=== PATIENT | female | born 1935 | race Caucasian/White ===

== ENCOUNTER 2024-09-12 05:38 | Inpatient (IN) | payer MEDICARE, OTHER, SELFPAY ==
[2024-09-12] VITALS (19 sets, daily range): BP systolic 101–180; BP diastolic 58–131; BMI 22.8
[2024-09-12] MEDS: TYLENOL/FEVERALL 650 MG RECTAL ×2 (00:56→06:49)
[2024-09-12] MEDS: NSS 1000 IV ×2 (00:59→02:30)
--- NOTE | 2024-09-12 01:01 | ED.GENMED ---
History of Present Illness
General
Chief Complaint: Change in Mental Status
Source: patient and ambulance crew
Exam Limitations: altered mental status
Time Seen by Provider: 09/12/24 00:50
Nursing documentation reviewed up to this point in time: agreed with
History of Present Illness
History of Present Illness:
89-year-old female with no reported chronic medical issues presents to the ER for evaluation of change in mental status. Patient is confused and lethargic and cannot meaningfully participate in history. History obtained from EMS and son. Patient
lives at home with her who unfortunately has dementia; she has 24-hour nursing care. Son says that she has a general cognitive decline over the past year or so. Today increasingly lethargic and in the evening visiting nurse noted patient
was having shaking chills. Symptoms persisted throughout the evening which ultimately resulted in EMS transport to the emergency room. She did have some vomiting and diarrhea this evening. No cough or other symptoms noted.
Review of Systems
Review of Systems
Unable to obtain full review of systems at this time due to: other (Mental status change)
All Other Systems: Not applicable
Phy Exam
Physical Exam
Physical Exam:
General: Lethargic but arousable
Head: Normocephalic, atraumatic
Eyes: Conjunctiva normal, pupils equal round and reactive to light bilaterally
Throat: Airway intact, dry mucous membranes
Neck: Trachea midline, supple without meningismus
Lungs: Clear to auscultation bilaterally, no wheezing, rales, rhonchi
Heart: Regular rate and rhythm, no murmurs, gallops, or rubs
Abd: Soft, non distended, no apparent tenderness
Neuro: Cranial nerves grossly intact, motor and sensory intact in extremities
Skin: Warm and dry
Extremities: Warm and well-perfused
Scores
Heart Failure Risk
Heart Failure Risk Score: Not Applicable
Heart Score for Chest Pain Patients
STEMI patient?: Not applicable
Withdrawal Assessment of Alcohol
Withdrawal Assessment Completed?: Not applicable
Sepsis
Sepsis Screening
Sepsis Assessment: Sepsis
Sepsis Screen
Sepsis Screen: Sepsis
Date: 09/12/24
Time: 03:45
Course
Orders/Labs/Results
Orders:
Orders
09/12/24 00:51
Straight cath- Treatment ONCE
Acetaminophen [Tylenol/Feverall] 650 mg RECTAL NOW STA
CR Chest Portable - 1 View Urgent
Comment:
Reason For Exam: fever
Reason Study Needs to be Portable: Unable to Transport
09/12/24 00:52
0.9% Sodium Chloride 1000 ml [Nss] 1,000 ml IV BOLUS
09/12/24 01:03
Piperacillin/Tazo 3.375 Gram [Zosyn] 3.375 gram in 50 ml IV NOW
09/12/24 01:06
Basic Metabolic Panel Urgent
Comment: NO K
Complete Blood Count/With Diff Urgent
Lipase Urgent
Blood Culture Q30M
RICHIE Source: Blood/Venous
Specimen Description:
Blood Culture Q30M
RICHIE Source: Blood/Venous
Specimen Description:
Influenza A+B Rapid Molecular Urgent
RICHIE Source: Nasal Swab
Specimen Description:
09/12/24 01:07
COVID-19 Antigen Urgent
Source: Nasal Swab
Lactate Level [Lactic Acid] Urgent
09/12/24 01:13
Norovirus by PCR Urgent
RICHIE Source: Feces/Stool
Specimen Description:
Date Specimen was Collected: 09/12/24
Time Specimen was Collected: 01:12
Stool Culture Urgent
RICHIE Source: Feces/Stool
Specimen Description:
Date Specimen was Collected: 09/12/24
Time Specimen was Collected: 01:12
09/12/24 01:37
CT Abd/pelvis W Iv Cont Urgent
Comment:
Reason For Exam: N/V/D, sepsis
09/12/24 01:40
0.9% Sodium Chloride 1000 ml [Nss] 1,000 ml IV BOLUS
09/12/24 02:24
CT Head W/o Iv Contrast Urgent
Comment:
Reason For Exam: n/v, change in mentation
Ibuprofen [Motrin] 400 mg PO NOW STA
09/12/24 02:29
Electrocardiogram (*1) Urgent
Reason for Study: QTc Monitoring
EKG- Treatment ONCE
Haloperidol Lactate [Haldol] 1 mg IV NOW STA
09/12/24 02:34
Acetaminophen [Tylenol/Feverall] 325 mg RECTAL NOW STA
09/12/24 02:36
Urinalysis Reflex To Culture Urgent
Date Specimen was Collected: 09/12/24
Time Specimen was Collected: 02:35
Urine Microscopic Reflex Cult Urgent
09/12/24 02:41
Vancomycin [Vancocin] 1,500 mg 0.9% Sodium Chloride 500 ml [Nss] 500 ml IV NOW
09/12/24 03:00
LFT [Vvkoc-Nhly-Uzcpwvt] Urgent
Potassium Urgent
09/12/24 03:02
Lactic Acid Urgent
09/12/24 03:03
Add On- LAB Urgent
Tests Added?: potassium
09/12/24 03:05
Haloperidol Lactate [Haldol] 1 mg IV NOW STA
Abnormal Lab Results
09/12/24 09/12/24 09/12/24
01:06 01:07 02:36
WBC 16.3 H 10^3/uL
(4.8-10.8)
RBC 4.01 L 10^6/uL
(4.20-5.40)
Hct 34.3 L %
(37.0-47.0)
MCH 31.7 H pg
(27.0-31.0)
Abs Immat Gran (auto) 0.2 H 10^3/uL
(0-0.05)
Absolute Neuts (auto) 13.4 H 10^3/uL
(1.4-6.5)
Absolute Monos (auto) 0.9 H 10^3/uL
(0.1-0.6)
Immature Gran % 1.1 H %
(0-0.5)
Neutrophils % 81.7 H %
(42.2-75.2)
Lymphocytes % 11.0 L %
(20.5-51.1)
Carbon Dioxide 17 L mmol/L
(22-30)
BUN 18 H mg/dl
(7-17)
Glucose 228 H mg/dl
(70-99)
Lactic Acid 5.6 H* mmol/L
(0.7-2.0)
Total Protein
Urine Ketones 2+ A
(Negative)
Ur Occult Blood Reflex 3+ A
(Negative)
Urine Bacteria (Reflex) Few A
(Negative)
Urine Glucose 3+ A
(Negative)
Urine Albumin (Reflex) 2+ A
(Neg - Trace)
09/12/24 09/12/24
03:00 03:02
WBC
RBC
Hct
MCH
Abs Immat Gran (auto)
Absolute Neuts (auto)
Absolute Monos (auto)
Immature Gran %
Neutrophils %
Lymphocytes %
Carbon Dioxide
BUN
Glucose
Lactic Acid 3.8 H mmol/L
(0.7-2.0)
Total Protein 5.9 L g/dl
(6.3-8.2)
Urine Ketones
Ur Occult Blood Reflex
Urine Bacteria (Reflex)
Urine Glucose
Urine Albumin (Reflex)
09/12/24 01:06
09/12/24 03:00
Vital Signs
Initial and Last Documented VS:
Initial Vital Signs
BP
101/78
09/12/24 00:45
Last Documented Vital Signs
Temp Pulse Resp BP Pulse Ox
39.4 C H 88 31 180/131 98
09/12/24 02:32 09/12/24 03:30 09/12/24 03:30 09/12/24 03:00 09/12/24 03:30
MDM/Problems Addressed
Differential Diagnosis Includes:
UTI, pneumonia, viral syndrome
MDM/Problems Addressed:
89-year-old female presents with a change in mental status�increasingly lethargic today. She arrives to us febrile, soft blood pressure, mild tachypnea but no hypoxia. Heart rate in the 80s. Physical exam as above. Will place an IV send labs
including a CBC and a CMP, lactate, blood cultures. Swab for COVID and flu. Check chest x-ray. Check urinalysis. Check CT abdomen, CT head. Treat with fluids, Tylenol. Anticipate admission pending initial workup and resuscitation.
Initial labs reviewed: CBC shows leukocytosis to 16.3. CMP shows metabolic acidosis with bicarb of 17; lactate 5.6 likely source of acidosis. With lactate greater than 4 will complete 30 cc/kg sepsis fluid bolus. Empiric antibiotics with
vancomycin and Zosyn. Chest x-ray reviewed by me shows no pneumonia. Urinalysis pending. CT pending.
Patient becoming agitated and trying to get out of bed. Haldol for agitation. EKG for QTc monitoring.
CT abdomen pelvis no acute pathology to account for symptoms. Urinalysis positive for blood in the setting of catheterization. No significant amount of bacteria or pyuria to suggest an acute infection. Chest x-ray shows no acute disease. At this
point unclear source for sepsis�could be viral illness versus bacteremia versus colitis/enteritis. Covered empirically with broad-spectrum antibiotics. Lactate improving with fluids. Discussed case with hospitalist for admission.
*Radiology
Radiology exam reviewed: preliminary read by ED provider
*Pulse Oximetry
Patient hypoxic: no
*Critical Care Note
Total Time (30-74mins, 75-104mins- exclusive of procedures): Not Applicable
Data Reviewed
Source: family and ambulance crew
Patient Management
Discussion with other providers: Hospitalist (Discussed with hospitalist)
Escalation/DeEscalation of care consider admission/obs:
Admission indicated
ED Attending Note
-
Portions of this chart may have been created with voice recognition software.� Occasional wrong word or��sound alike� substitutions may have occurred due to the inherent limitations of voice recognition software.
Discharge Plan
Departure
Patient Disposition: Admit
Date of Disposition: 09/12/24
Time of Disposition: 03:46
Admit to doctor: Gwen
Presentation/result/management discussed w/ accepting MD/DO: Hospitalist
Patient with high blood pressure during this ER visit?: No
Discharge Problem:
Sepsis, Diarrhea, Fever
Prescriptions:
No Action
Unobtainable
0
Referrals:
UNKNOWN - PT DOES,NOT KNOW [Family Provider] -
Interventions
Interventions:
*Risk Screen - Suicide Last Done: 09/12/24 01:32
*General Assessment Last Done: 09/12/24 01:36
*Neglect/Abuse Screening Last Done: 09/12/24 01:32
*ED- Fall Risk Assessment Last Done: 09/12/24 01:32
*ED COVID-19 Vaccine History Last Done: 09/12/24 01:32
ED- Neurological Assessment Last Done: 09/12/24 01:00
ED Swallowing Screen Last Done: 09/12/24 01:33
Discharge Date and Time
Print Language: [place]
[2024-09-12 01:17] LABS: % Basophils 0.4 % (0-2); % Eosinophils 0.1 % (0-6); % Immature Granulocytes 1.1 % (0-0.5); % Monocytes 5.7 % (1.7-9.3); % Neutrophils 81.7 % (42.2-75.2); Absolute Basophils 0.1 10^3/uL (0-0.2); Absolute Immature Granulocytes 0.2 10^3/uL (0-0.05); Absolute Lymphocytes 1.8 10^3/uL (1.2-3.4); Absolute Monocytes 0.9 10^3/uL (0.1-0.6); Absolute Neutrophils 13.4 10^3/uL (1.4-6.5); Hematocrit 34.3 % (37.0-47.0); Hemoglobin 12.7 g/dL (12.0-16.0); Mean Corpuscular Hgb 31.7 pg (27.0-31.0); Mean Corpuscular Volume 85.5 fL (81.0-99.0); Mean Platelet Volume 9.6 fL (7.4-10.4); Nucleated Red Blood Cells % 0 %; Platelet Count 307 10^3/uL (130-400); Red Blood Cell Count 4.01 10^6/uL (4.20-5.40); Red Cell Dist. Width 13.5 % (11.5-14.5); White Blood Cell Count 16.3 10^3/uL (4.8-10.8)
[2024-09-12] MEDS: ZOSYN 50 IV (01:25)
[2024-09-12 01:37] LABS: COVID-19 Antigen Negative (Negative)
[2024-09-12 01:38] LABS: Blood Urea Nitrogen 18 mg/dl (7-17); Carbon Dioxide 17 mmol/L (22-30); Chloride 101 mmol/L (98-107); Estimated Creatinine Clearance 43 ml/min; Glucose 228 mg/dl (70-99); Lipase 130 U/L (23-300); Sodium 135 mmol/L (135-145); eGFR > 60.00
[2024-09-12 01:40] LABS: Lactic Acid 5.6 mmol/L (0.7-2.0)
[2024-09-12] MEDS: TYLENOL/FEVERALL 325 MG RECTAL (02:41)
[2024-09-12 02:43] LABS: Urine Albumin 2+ (Neg - Trace); Urine Bilirubin Negative (Negative); Urine Character Clear (Clear); Urine Color Yellow; Urine Glucose 3+ (Negative); Urine Ketone 2+ (Negative); Urine Leukocyte Negative (Negative); Urine Nitrite Negative (Negative); Urine Occult Blood 3+ (Negative); Urine Specific Gravity 1.005 (<1.030); Urine Urobilinogen Negative (Neg - 1+)
[2024-09-12] MEDS: HALDOL 1 MG IV ×2 (02:55→03:08)
[2024-09-12 02:56] LABS: Urine Red Blood Cell 0-2 /HPF (0-2); Urine White Cell 0-2 /HPF (0-5)
[2024-09-12 02:57] LABS: Urine Bacteria Few (Negative)
--- NOTE | 2024-09-12 03:00 | EDRN ---
Report received at bedside, this RN and previous changed patient she had a small liquid stool, patient cleaned and then taken over to CT, back in room and antibiotics started on patient. Patient very restless, trying to take off gown and telemetry
monitor.
[2024-09-12] MEDS: VANCOCIN 530 MG IV (03:27)
[2024-09-12 03:30] LABS: Lactic Acid 3.8 mmol/L (0.7-2.0)
[2024-09-12 03:30] LABS: ALT (SGPT) 17 U/L (0-35); AST (SGOT) 22 U/L (14-36); Albumin 3.8 g/dl (3.5-5.0); Alkaline Phosphatase 70 U/L (38-126); Direct Bilirubin 0.2 mg/dl (0.0-0.4); Potassium 4.4 mmol/L (3.5-5.1); Total Bilirubin 1.2 mg/dl (0.2-1.3); Total Protein 5.9 g/dl (6.3-8.2)
--- NOTE | 2024-09-12 04:00 | EDRN ---
Rechecked patients temp, temp now 102.8, there hasn't been much of a decrease in her temp. placed ice packs in armpits and groin, spoke with Dr. Butterfield who is managing patient until she is admitted, IV ibuprofen ordered.
--- NOTE | 2024-09-12 04:11 | HPS.HSE ---
Family Physician
-
Family Physician: NOT KNOW UNKNOWN - PT DOES
Chief Complaint
-
Altered mental status
History of Present Illness
89-year-old female with past medical history (obtained from medical records) including hyperlipidemia, iwa-fwusxtk-abyirgfos diabetes, history of prior low pancreatic mass, prior uterine cancer status post hysterectomy who presents from home with
altered mental status and fever.
Patient unable to provide any history as she is quite encephalopathic. She lives with her spouse will have severe dementia. She has a 24-hour home paid and caregiver. ED obtained history from EMS and son. They reported that she has been having
cognitive decline over the past year. She was increasing lethargic from this a.m. The evening nurse noted that the patient was having shaking chills. Throughout our stay with the patient the shaking chills persisted so EMS was called. Apparently
had episode of vomiting and diarrhea earlier in the evening. No oral focal findings were described.
As read renal patient has no recent sick contacts. She has no recent travels. She has no recent hospitalizations., We are not certain of any active medications. No known history of seizures.
1 small amount of diarrhea in the ED.
In the emergency department she was persistently febrile 12/102.9. Blood pressure was elevated at 180/70 with a pulse of 80s. Respiratory rate was in the 30s. She was satting 98% on room air. ECG shows a sinus rhythm at a rate of 90. Chest
x-ray was clear. Lactic acid was elevated at 5.6. She has a white count of 16.3 with a CBC otherwise been unremarkable. Electrolytes BUN and creatinine notable for a bicarb of 17 BUN and creatinine was stable at 8 and 0.8. Glucose was 225.
Additional infectious workup including COVID-19, influenza negative. UA was completely negative. She had a CT of the abdomen pelvis which showed no acute intra-abdominal pathology.
Medical History
Past Medical History
Past Medical History: Reports Cancer (History of uterine cancer, history of pancreatic mass), Hypercholesterolemia and NIDDM
Past Surgical History: Reports Gynocological (Total hysterectomy and bilateral salpingo-oophorectomy) and Other (Hernia repair)
Social History
Tobacco: Non-smoker
Alcohol: None
Drug: None
Family History
Family History: Not pertinent
Allergies / Home Medications
Allergies reflects when Allergies were last updated in [facility].
Home Medications with original date entered in [facility]
Allergy/Medication List:
Allergies
Allergy/AdvReac Type Severity Reaction Status Date / Time
NKA - No Known Allergies Allergy Uncoded 09/08/07 10:25
Home Medications
Unobtainable 09/12/24
Prior to 09/12/2024
Sertraline HCl 50 MG 1 tablet Orally Once a day for 30 days Active
metFORMIN HCl 1000 MG 1 tablet with a meal Orally twice a day for 30 days Jan, Active
Review of Systems
-
Unable to obtain full review of systems at this time due to: Acuity
Physical Exam
Vital Signs
Vital Signs
Temp Pulse Resp BP Pulse Ox
102.9 F H 91 29 174/82 97
09/12/24 02:32 09/12/24 04:06 09/12/24 03:59 09/12/24 04:06 09/12/24 03:59
Physical Exam
General: Appears in Distress
HEENT: NormoCephalic, Atraumatic, Nose Appears Normal, Ears Appear Normal and Neck Nontender (Cannot assess for tenderness, does not appear stiff); No Moist mucous membranes, PERRLA (Cannot cooperate) or Oxygen
Respiratory: Clear
Cardiac: S1/S2 and Regular Rhythm
Breast: Deferred by me
GI: Soft and Non Distended
Rectal: Brown
Genito-urinary: Clear Urine
Musculoskeletal: No Clubbing, No Cyanosis and No Edema
Skin: Warm and Dry
Neuro: DTR's Intact & Symmetrical and Other (agitated, awake, cannot follow commads.)
Hematologic/Lymphatic: No Lymphadenopathy
Psych: Agitated
Laboratory Results
-
09/12/24 01:06
09/12/24 03:00
Laboratory Results
Lactic Acid 3.8 mmol/L (0.7-2.0) H 09/12/24 03:02
Total Bilirubin 1.2 mg/dl (0.2-1.3) 09/12/24 03:00
AST 22 U/L (14-36) 09/12/24 03:00
ALT 17 U/L (0-35) 09/12/24 03:00
Alkaline Phosphatase 70 U/L (38-126) 09/12/24 03:00
Lipase 130 U/L (23-300) 09/12/24 01:06
Data Reviewed
-
Diagnostic Radiology: Image Personally Visualized and interpreted
CT Scan: Report Reviewed by me
Medical Tests (Nuc Med, Echo, EKG etc): Image Personally Visualized and interpreted
Lab Data: Labs Reviewed by me
Old Records: Reviewed
Impression/Plan
-
IMPRESSION:
89 F transferred from home after 24 hour care givers noted shaking chills, altered mental status. Febrile to 102.9 in ED. History notable for 1 year of progressive dementia, vomiting/diarrhea in am then shaking chills and altered mental status
this evening. No other history available. Exam is unrevealing for localization of source of infection. Imaging studies unremarkable. LFTs normal. U/A normal. She has leukocytosis, and marked elevation in lactic acid. Influenza is negative.
Covid is negative. Sepsis without shock. Given patient is home bound differential here includes meningitis/encephalitis versus transient bacteremia.
PLAN:
1. Sepsis - Source unclear. AMS possibly from febrile illness but in the absence of source cannot rule out meningitis
- admit to IMU
- blood cultures sent
- urine cx sent
- stool studies pending
- No trauma, empiric coverage for bacterial meningitis IV vanc/ceftriaxone/ampicillin/dexamethasone + acyclovir
- Continue IV fluids
- HOB > 30
- possible LP in am
- ID consultation
2. Lactic acidosis - from sepsis
- continue IV fluids with LR for now
- vbg in am
3. DM II
- sliding scale insulin for now
- check bHB and a1c
DVT PPX - heparin sq
Code status - unable to obtain. Called family and had no response. Full Code for now.
--- NOTE | 2024-09-12 04:30 | EDRN ---
Patient continuously pulling monitor off and pulling at IV lines, Hospitalist at bedside working on admission, verbal order to start soft limb restraints on both wrists for patients safety.
[2024-09-12] MEDS: CALDOLOR 156 MG IV (04:35)
[2024-09-12] MEDS: ZOVIRAX INJECTION 112 MG IV (05:38)
--- NOTE | 2024-09-12 06:17 | EDRN ---
Report called to IU, patient changed, incontinent to urine and small amount of stool, rechecked temp 102.6
--- NOTE | 2024-09-12 06:30 | EDRN ---
While leaving for IMU, spoke with ALLI Lamar informed her that patient's temp still elevated at 102.6, she was putting order in for cooling blanket, informed IMU nurse when I took patient upstairs.
--- NOTE | 2024-09-12 06:44 | PTCARENOTE ---
PT admitted to unit. NOnverbal, not oriented. Opens eyes to verbal and look at you when you speak. NSR on monitor. RA. hypertensive. febrile. pt pulling at iv's/gown but cooperative. Sleeping now. Will monitor.
[2024-09-12] MEDS: LR 1000 IV ×2 (06:48→15:56)
--- NOTE | 2024-09-12 08:08 | PTCARENOTE ---
Assumed careof patient this AM. Patient arrived from ED at 06:30AM. Patient opens eyes but is currently nonverbal. HOB set at 30 degrees. Cooling blanket in place as ordered. Rectal temperature 102.2. Bilateral wrist restraints as ordered for
protection. Will access the need for restraints through
out the day. Will continue to monitor frequently.
[2024-09-12 08:27] LABS: Glucose - Point of Care 259 mg/dl (70-99)
[2024-09-12] MEDS: ROCEPHIN 2000 MG IV (08:39)
[2024-09-12] MEDS: DECADRON 10 MG IV (08:39)
[2024-09-12] MEDS: STERILE WATER FOR INJECTION 20 ML IV (08:39)
[2024-09-12] MEDS: AMPICILLIN 108 MG IV (08:40)
[2024-09-12] MEDS: PROTONIX IV 40 MG IV (08:40)
[2024-09-12] MEDS: NSS (PRESERVATIVE FREE) 10 ML IV (08:40)
[2024-09-12] MEDS: HEPARIN 5000 UNITS SC ×2 (08:40→19:28)
[2024-09-12] MEDS: NOVOLOG FLEXPEN-LOW RESISTANCE 3 UNITS SC (09:03)
--- NOTE | 2024-09-12 09:05 | CON.ID ---
Consultation
-
Date/Time Consultation Requested: September 12, 2024 0637
Date/Time Consultation Performed: September 12, 2024 0900
Requesting Provider: Dr. Marcus Jack
Performing Provider: Dr. Cinthya Copeland
Reason for Consultation: Sepsis
Chief Complaint / Past History
Chief Complaint
Change in mental status and fever
History of Present Illness
History obtained from review medical records as patient has cognitive impairment. She is a 89-year-old female with history of diabetes mellitus, PAD, depression who presented to the ER at midnight with encephalopathy. Patient receives 24-hour care
at home along with her who has dementia. Caregiver noted patient started with shaking chills throughout the day. Also patient more confused and lethargic. Earlier in the evening she had episode of emesis and diarrhea. In the ED
temperature one 101.4. White count 16.3. Lactic acid 5.6. Blood pressure elevated up to 180/131. COVID-negative. Influenza negative. UA negative. Chest x-ray negative. CT of the abdomen pelvis unremarkable. Head CT no acute pathology. She
was started on IV ceftriaxone, ampicillin, vancomycin, and dexamethasone for possible meningitis. Stool was sent for culture and norovirus. This morning patient is arousable. She denies headache or neck stiffness. She denies pain. No cough.
Past History
Additional Past Medical History:
Diabetes mellitus
Progressive cognitive impairment
HLD
PAD
Benign pancreatic cyst
Uterine cancer status post hysterectomy/BSO (2000)
Depression
Hearing loss
Umbilical Hernia repair
L TKR
Cataract surgery
Allergy History:
NKA - No Known Allergies Allergy (Uncoded 09/08/07 10:25)
Medications Reviewed: Yes
Current Antibiotics:
Ceftriaxone 2g IV q12
VancomycinIV
Ampicillin 2g IV q6h
Acyclovir IV 600mg q12h
Dexamethasone
Social History
Tobacco: Non-Smoker
Alcohol: None
Drug: None
Personal:
Living: Other ( and 24h paid caregiver)
Family History
Family History: Not Pertinent
Review of Systems
Review of Systems
HEENT: Negative Sinus Problems or Headache
Respiratory: Negative Dyspnea or Cough
Limited due to change in mental status.
Vital Signs
Temp Pulse Resp BP Pulse Ox
102.2 F H 97 26 152/75 93
09/12/24 08:07 09/12/24 06:15 09/12/24 06:15 09/12/24 06:00 09/12/24 06:00
Physical Exam
Physical Exam
Constitutional: Acutely Ill and Chronically Ill
Head: Other (No frontal or max or sinus tenderness)
Eyes: No Conjunctival Hemorrhage and Sclera Anicteric
Oral: Poor Dentition (decayed from age)
Cardiovascular: Regular Rate and S1/S2
Pulmonary: Other (Poor respiratory effort)
Gastrointestinal: Soft, Non Tender, Non Distended and Normal Bowel Sounds
Genito-Urinary: Negative Suprapubic Tenderness or CVA Tenderness
Extremities: Negative Edema
Musculoskeletal: Negative Joint Swelling or Joint Effusion
Neurological: Other (Lethargic but arousable, follows commands.); Negative Oriented or Meningeal Signs (Neck supple)
Lab / Diagnostic Study Results
09/12/24 01:06
09/12/24 03:00
Abs Immat Gran (auto) 0.2 10^3/uL (0-0.05) H 09/12/24 01:06
Absolute Neuts (auto) 13.4 10^3/uL (1.4-6.5) H 09/12/24 01:06
Absolute Lymphs (auto) 1.8 10^3/uL (1.2-3.4) 09/12/24 01:06
Absolute Monos (auto) 0.9 10^3/uL (0.1-0.6) H 09/12/24 01:06
Absolute Basos (auto) 0.1 10^3/uL (0-0.2) 09/12/24 01:06
Immature Gran % 1.1 % (0-0.5) H 09/12/24 01:06
Neutrophils % 81.7 % (42.2-75.2) H 09/12/24 01:06
Lymphocytes % 11.0 % (20.5-51.1) L 09/12/24 01:06
Monocytes % 5.7 % (1.7-9.3) 09/12/24 01:06
Eosinophils % 0.1 % (0-6) 09/12/24 01:06
Basophils % 0.4 % (0-2) 09/12/24 01:06
Lactic Acid 3.8 mmol/L (0.7-2.0) H 09/12/24 03:02
Ur Squamous Epith Cells 3-5 /LPF (Few) 09/12/24 02:36
Microbiology Results
Micro:
09/12/24 08:44 Blood Culture - Pending
Blood/Venous
09/12/24 01:06 Influenza Types A & B (HAMZAH) - Final
Nasal Swab Negative for Influenza A & B, NAAT
Negative results must be combined with clinical observations
and patient history.
Nucleic Acid Amplification test (NAAT)performed on the
[employer] platform.
09/12/24 01:06 Blood Culture - Pending
Blood/Venous
09/12/24 01:13 Salmonella/Shigella Culture - Pending
Feces/Stool Campylobacter Culture - Pending
Shiga Toxin Test - Pending
09/12/24 01:13 - Pending
Feces/Stool
09/12/24 01:06 Blood Culture - Pending
Blood/Venous
09/12/24 CXR: No radiographic evidence for pneumonia. 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
09/12/24 CT a/p: No CT evidence for an acute process in the abdomen or pelvis.
09/12/[address]: No acute intracranial abnormality.
Assessment / Plan
# Severe sepsis: fever, leukocytosis, tachy, elevated mental status
# Acute on chronic change in mental status
# Diarrhea
- Source of sepsis possibly GI enteritis vs lungs
- CT a/p unremarkable
-UA neg. COVID/Flu neg
- Initial cxr neg
- Await blood cultures
-Repeat CXR to assess for blossoming PNA
- Add C. diff to stool cx,norovirus
- Urine legionella/pneumococcal Ag pending
- Low suspicion for meningitis. DC VAnco/ampicillin/acyclovir.
-Decrease ceftriaxone dose to q24.
- Trend temps, wbc, lactic acid.
# Conditions LACTATION NURSE
Diabetes mellitus
Progressive cognitive impairment
HLD
PAD
Benign pancreatic cyst
Uterine cancer status post hysterectomy/BSO (2000)
Depression
Hearing loss
Umbilical Hernia repair
L TKR
Cataract surgery
Care Review
Plan reviewed with: Nurse and Physician (Dr. Jack)
[2024-09-12 09:20] LABS: Lactic Acid 3.3 mmol/L (0.7-2.0)
[2024-09-12 12:31] LABS: Glucose - Point of Care 174 mg/dl (70-99)
[2024-09-12] MEDS: NOVOLOG FLEXPEN-LOW RESISTANCE 1 UNITS SC (12:53)
--- NOTE | 2024-09-12 13:03 | W.PN.HOSP.TC ---
Today's Communication/Plan
-
Repeat chest x-ray
Follow-up stool studies and C. difficile
Follow-up with blood in urine culture
Continue IV ceftriaxone 1 g every 24
BUSINESS INFO CONSULTANT/PT/OT
NPO/IVF
Trend lactate
Assessment / Plan
Assessment / Plan
#Severe sepsis
#Acute metabolic encephalopathy
#Lactic acidosis
#Diarrhea
-Unclear source for sepsis though suspicion for GI versus pulmonary/aspiration; cultures and stool studies obtained in ED
-Initial concern for meningitis though no meningeal signs; vancomycin, ampicillin, acyclovir discontinued
-CT A/P was unremarkable, initial chest x-ray unremarkable, Legionella and pneumococcal antigen
-ID following, recommended repeat chest x-ray, C. difficile testing, reduced ceftriaxone every 24 hours
-Has remained hemodynamically stable with no vasopressors required
-Continue IV ceftriaxone, follow-up stool/blood/urine cultures and C. difficile test
-Trend CBC and temperature curve, trend lactate to normal level
-Follow-up Legionella and pneumococcal antigen
-Repeat chest x-ray to assess for change
-Continue maintenance IV
#NIDDM
-No recent A1c; no history of microvascular disease complication
-Unclear if she is on any home medications; started on ISS with Accu-Cheks
-Blood glucose goal 140-180
#Dyslipidemia
-Not currently on any medications, no known ASCVD history
#H/O uterine cancer s/p FARRUKH
#H/O pancreatic mass
DVT prophylaxis: SQ heparin
Diet: N.p.o. pending speech eval
CODE STATUS: Full code
Anticipated Discharge: > 48 hours
Subjective/Interval History
-
Date of Service: September 12, 2024
Seen and examined at bedside. No acute events reported overnight. Temperature 102 �F this morning, otherwise hemodynamically stable and on room air
Lactic acid improving with IV fluids, down to 3.3 on last check.
ROS limited by encephalopathy
Objective Data
-
Labs:
Laboratory Results
09/12/24 09/12/24
01:06 03:00
WBC 16.3 H
Hgb 12.7
Hct 34.3 L
Plt Count 307
Sodium 135
Potassium 4.4
Chloride 101
Carbon Dioxide 17 L
BUN 18 H
Creatinine 0.8
Glucose 228 H
Calcium 10.0
Total Bilirubin Cancelled 1.2
AST Cancelled 22
ALT Cancelled 17
Alkaline Phosphatase Cancelled 70
Vital Signs:
Vital Signs
Temp Pulse Resp BP Pulse Ox
100.3 F 79 15 148/77 95
09/12/24 11:38 09/12/24 10:15 09/12/24 10:15 09/12/24 10:00 09/12/24 10:15
I&O
09/11/24 09/12/24 09/13/24
06:59 06:59 06:59
Intake Total 108 / 108
Balance 108 / 108
Review of Systems
-
Unable to obtain full review of systems at this time due to: Acuity
Physical Exam
-
General: Well Developed, Well Nourished, No Apparent Distress and Other (Toxic appearing)
HEENT: Normocephalic, Atraumatic, Moist Mucous Membranes and Anicteric
Respiratory: Clear to Auscultation and Non Labored Respirations; Negative Accessory Resp Muscle Use
Cardiac: Regular Rhythm and S1/S2; Negative Murmur, Rub or Gallop
GI: Soft, Nontender, Nondistended and Normal Bowel Sounds
Musculoskeletal: No Clubbing, No Cyanosis and No Edema
Skin: Warm and Dry; Negative Rash
Neuro: Awake, Alert, Nonfocal/Grossly Intact and Other (No meningeal signs); Negative Oriented or Tremors
Psych: Calm
Data Reviewed
-
Labs: Labs Reviewed by me, Discussed with Physician (Infectious disease) and Discussed with Patient
--- NOTE | 2024-09-12 15:34 | CM ---
Patient seen at bedside in IMU. Patient lives with her who has severe dementia and they have 24/7 caregivers. Patient son indicated that the home is a 2 story home and they remain on the first floor. Patient has a walker and no VN supports
at this time. Patient PCP is Dr. Paez at [facility], they use [facility] in [place] and patient has been incontinent for the last 6 months. Patient son stated that patient has depression and diabetes. Patient son indicated that
patient does not want to go anywhere other than home at discharge but they would consider accepting VN supports. CM will continue to follow for discharge planning needs.
Plan; home with private duty aides; watch for home VN need
--- NOTE | 2024-09-12 16:00 | PTCARENOTE ---
Patient has been off the cooling blanket since 11:30am. Patient is more alert and awake at times but still unable to follow commands. Verbalizing yes and no to some questions. Continued need for bilateral wrist restraints. Patient INC of bowel
and bladder. Order to for IV site and lab draws in feet. IV fluids infusing as ordered via right foot site. Patient reminds NPO until more alert to work with speech. Family in room and updated.
[2024-09-12 16:10] LABS: Lactic Acid 2.1 mmol/L (0.7-2.0)
--- NOTE | 2024-09-12 16:24 | PTOTSP ---
Dysphagia Eval
Patient with severe oral stage difficulty (i.e., biting utensil, absent anterior to posterior oral transfers) likely related to AMS/acute encephalopathy. Reflexive swallow noting noted with oral care. Aspiration risk is acutely elevated.
Recommend:
1. NPO with consideration of temporary non-oral means if prolonged NPO
2. Medications non-oral
3. Oral care 3-5x daily
4. Aspiration risk hydration protocol is not appropriate at this time
5. Dysphagia f/u bedside to determine if/when appropriate to initiate an oral diet
[2024-09-12 18:05] LABS: Glucose - Point of Care 225 mg/dl (70-99)
[2024-09-12] MEDS: NOVOLOG FLEXPEN-LOW RESISTANCE 2 UNITS SC (18:05)
[2024-09-12] MEDS: STERILE WATER FOR INJECTION IV (18:09)
--- NOTE | 2024-09-12 22:51 | PTCARENOTE ---
Caring for pt overnight. Family at bedside. Code status changed to DNR per pt paperwork. Pt drowsy but restless. Unable to remove restraints. NSR/SB on monitor. Remains RA. Q2T. IVF. npo. ivabx. Refused mouth care. CHG wipes. Cooling blanket PRN,
will monitor temps. No other issues. BA on. Will monitor.
[2024-09-12 23:42] LABS: Glucose - Point of Care 201 mg/dl (70-99)
[2024-09-13] VITALS (15 sets, daily range): BP systolic 118–163; BP diastolic 58–138; PULSE 59; O2SAT 97
[2024-09-13] MEDS: NOVOLOG FLEXPEN-LOW RESISTANCE 2 UNITS SC ×2 (00:28→17:24)
[2024-09-13] MEDS: LR 1000 IV (01:02)
[2024-09-13] MEDS: ROCEPHIN 2000 MG IV (05:09)
[2024-09-13] MEDS: STERILE WATER FOR INJECTION 20 ML IV (05:10)
[2024-09-13] MEDS: FLUSH (NSS) 1 FLUSH IV ×3 (05:11→08:47)
[2024-09-13] MEDS: NOVOLOG FLEXPEN-LOW RESISTANCE SC (05:31)
[2024-09-13 05:42] LABS: Glucose - Point of Care 118 mg/dl (70-99)
[2024-09-13 06:21] LABS: Venous Blood Gas B.E. -1.8 mmol/L (-4 to +4); Venous Blood Gas HCO3 21.5 mmol/L (22-27); Venous Blood Gas O2 Sat % 99.9 %; Venous Blood Gas pCO2 31 mmHg (35-48); Venous Blood Gas pH 7.45 (7.32-7.43); Venous Blood Gas pO2 193 mmHg (30-50)
[2024-09-13 06:31] LABS: % Basophils 0.4 % (0-2); % Eosinophils 1.5 % (0-6); % Immature Granulocytes 0.6 % (0-0.5); % Lymphocytes 20.7 % (20.5-51.1); % Monocytes 8.1 % (1.7-9.3); % Neutrophils 68.7 % (42.2-75.2); Absolute Eosinophils 0.2 10^3/uL (0-0.7); Absolute Immature Granulocytes 0.1 10^3/uL (0-0.05); Absolute Lymphocytes 2.3 10^3/uL (1.2-3.4); Absolute Monocytes 0.9 10^3/uL (0.1-0.6); Absolute Neutrophils 7.5 10^3/uL (1.4-6.5); Hematocrit 27.7 % (37.0-47.0); Hemoglobin 10.1 g/dL (12.0-16.0); Mean Corp Hgb Conc. 36.5 g/dL (33.0-37.0); Mean Corpuscular Hgb 31.8 pg (27.0-31.0); Mean Corpuscular Volume 87.1 fL (81.0-99.0); Mean Platelet Volume 9.9 fL (7.4-10.4); Nucleated Red Blood Cells % 0 %; Platelet Count 245 10^3/uL (130-400); Red Blood Cell Count 3.18 10^6/uL (4.20-5.40); Red Cell Dist. Width 13.6 % (11.5-14.5)
[2024-09-13 06:43] LABS: INR 1.08; PT 14.4 Sec (11.4-14.6)
[2024-09-13 06:59] LABS: ALT (SGPT) 20 U/L (0-35); AST (SGOT) 40 U/L (14-36); Albumin 3.4 g/dl (3.5-5.0); Alkaline Phosphatase 55 U/L (38-126); B-Hydroxybutyrate 0.83 mmol/L (0.02-0.27); Blood Urea Nitrogen 19 mg/dl (7-17); Calcium 8.2 mg/dl (8.4-10.2); Carbon Dioxide 21 mmol/L (22-30); Chloride 105 mmol/L (98-107); Estimated Creatinine Clearance 43 ml/min; Glucose 129 mg/dl (70-99); Potassium 3.6 mmol/L (3.5-5.1); Sodium 136 mmol/L (135-145); Total Bilirubin 0.9 mg/dl (0.2-1.3); Total Protein 5.5 g/dl (6.3-8.2); eGFR > 60.00
[2024-09-13 07:14] LABS: Cortisol, Random 10.2 ug/dl
[2024-09-13 08:34] LABS: Glycohemoglobin (HgbA1c) 9.2 % (4.0-5.6)
[2024-09-13] MEDS: HEPARIN 5000 UNITS SC ×2 (08:44→21:35)
[2024-09-13] MEDS: PROTONIX IV 40 MG IV (08:47)
[2024-09-13] MEDS: NSS (PRESERVATIVE FREE) 10 ML IV (08:47)
--- NOTE | 2024-09-13 11:10 | PN.CDI ---
CDI
- -
CDI:
Physician Documentation Request
Admit Date: 09/12/24 05:38
Dear Doctor Guero,
Please review the following and provide your response in the progress notes.
Clinical Indicators:
Nurses' Assessment, 09/12
Selected Entries
09/12/24
06:43
Pressure injury stage [Present on admission Buttock] Stage 1
Physician documentation of the type and location of wounds is required for compliant documentation. Based on the above clinical findings and your assessment, please provide the following in your progress note:
Yes, Stage 1 pressure injury buttock, POA
No, Stage 1 pressure injury buttock
Other (please specify)
Location of the ulcer/wound, including laterality.
Type (etiology) of ulcer/wound:
- Diabetic ulcer
- Pressure (decubitus) ulcer
- Other
- Unable to determine
For a pressure ulcer, please also include the stage* of the ulcer:
- Stage 1 - Skin intact, non-blanchable redness
- Stage 2 - Partial thickness loss of dermis, includes intact or open blister
- Stage 3 - Full thickness tissue not including bone, tendon or muscle
- Stage 4 - Full thickness tissue loss, including exposed bone, tendon or muscle
- Unstageable - Full thickness loss in which the base of the ulcer is covered by slough (yellow, roberto, salgado, green or brown) and/or eschar (roberto, brown or black) in the wound bed.
Use of terms such as suspected, likely, concern for, or probable (associated with a specific diagnosis that is being evaluated, monitored, or treated as if it exists) are acceptable and can be coded in the inpatient setting, when documented at the
time of discharge.
Thank you,
Loren Giron RN BSN CCDS
CDI Specialist
Please contact via tiger text
Please use your independent medical judgment in providing your response.
*Source: National Pressure Ulcer Advisory Panel (NPUAP)
--- NOTE | 2024-09-13 11:28 | W.PN.HOSP.TC ---
Addendum entered and electronically signed by Marcus Jack DO 09/14/24 12:28:
CDI: Hypokalemia was present. Precipitous drop in hemoglobin/hematocrit due to IVF and hemodilution
Original Note:
Today's Communication/Plan
-
Continue antibiotics for now
Monitor on soft and bite-size diet
Repeat MAINTENANCE AND UTILITIES SUPERVISOR evaluation
PT evaluation
Assessment / Plan
Assessment / Plan
#Severe sepsis secondary to aspiration pneumonia/pneumonitis
#Acute metabolic encephalopathy
#Lactic acidosis
-Suspect at this point that she had significant aspiration event; has had rapid clinical improvement which is more consistent with pneumonitis
-Initial concern for meningitis though no meningeal signs; vancomycin, ampicillin, acyclovir discontinued; remains on IV CTX 1 g daily
-CT A/P was unremarkable, Legionella and pneumococcal antigen (-); new CXR bibasilar findings between 2 x-rays 09/12
-Has remained hemodynamically stable with no vasopressors required; cultures remain with NGTD
-Evaluated by speech and swallow who recommended soft and bite-size diet, aspiration precaution
-Continue IV ceftriaxone; plan to transition to Augmentin to complete 7-day course
-Trend CBC and temperature curve, trend lactate to normal level
-Continue with aspiration precautions
#NIDDM
-No recent A1c; no history of microvascular disease complication
-Unclear if she is on any home medications; started on ISS with Accu-Cheks
-Blood glucose goal 140-180
#Dyslipidemia
-Not currently on any medications, no known ASCVD history
#H/O uterine cancer s/p FARRUKH
#H/O benign pancreatic cyst
#Stage I pressure ulcer
DVT prophylaxis: SQ heparin
Diet: IDDSI 6, soft and bite-size
CODE STATUS: DNR (confirmed with son 09/12)
Anticipated Discharge: 24 - 48 hours
Subjective/Interval History
-
Date of Service: September 13, 2024
Objective Data
-
Labs:
Laboratory Results
09/13/24
05:34
WBC 11.0 H
Hgb 10.1 L D
Hct 27.7 L
Plt Count 245 D
PT 14.4
INR 1.08
Sodium 136
Potassium 3.6
Chloride 105
Carbon Dioxide 21 L
BUN 19 H
Creatinine 0.8
Glucose 129 H
Calcium 8.2 L D
Total Bilirubin 0.9
AST 40 H
ALT 20
Alkaline Phosphatase 55
Vital Signs:
Vital Signs
Temp Pulse Resp BP Pulse Ox
97.9 F 56 11 129/111 96
09/13/24 07:10 09/13/24 06:00 09/13/24 06:00 09/13/24 06:00 09/13/24 06:00
I&O
09/12/24 09/13/24 09/14/24
06:59 06:59 06:59
Intake Total 1058 / 1058
Output Total 75 / 75
Balance 983 / 983
--- NOTE | 2024-09-13 11:51 | VATNOTE ---
Followed up with PCN on status of patient's PIVs, states that MD thinks pt will be discharged tomorrow and to leave lines in place rather than pursuing a midline or ultrasound guided IV. Will continue to follow.
[2024-09-13 12:02] LABS: Glucose - Point of Care 165 mg/dl (70-99)
--- NOTE | 2024-09-13 13:03 | W.PN.ID1 ---
Date of Service
Date of Service: September 13, 2024
Today's Communication
Continue ceftriaxone for now.
Assessment / Plan
# Fever - resolving
# Leukocytosis - improving
# Acute on chronic change in mental status - improving
# Diarrhea - resolved
- Source of sepsis unclear - possibly GI enteritis
- CT a/p unremarkable
-UA neg. COVID/Flu neg
- Initial cxr neg. Repeat CXR atelectasis
- Blood cultures neg to date
- C. diff neg, norovirus neg. Stool cx pending
- Urine legionella/pneumococcal Ag neg
- Continue ceftriaxone (d3).
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
Diabetes mellitus
Progressive cognitive impairment
HLD
PAD
Benign pancreatic cyst
Uterine cancer status post hysterectomy/BSO (2000)
Depression
Hearing loss
Umbilical Hernia repair
L TKR
Cataract surgery
Chief Complaint
-: Fever and Leukocytosis
Subjective / Review of Systems
More alert today.
She reports feeling well today. No complaints.
Vital Signs / Physical Exam
Vital Signs
Vital Signs
Temp Pulse Resp BP Pulse Ox
97.9 F 56 11 129/111 96
09/13/24 07:10 09/13/24 06:00 09/13/24 06:00 09/13/24 06:00 09/13/24 06:00
Physical Exam
Constitutional: No Acute Distress and Comfortable
Cardiovascular: Regular Rate
Pulmonary: Coarse (bases)
Gastrointestinal: Soft, Non Tender, Non Distended and Normal Bowel Sounds
Genito-Urinary: Negative CVA Tenderness
Extremities: Negative Edema
Neurological: Awake and Alert
Objective Data
Lab Data
Lab Results
09/13/24 05:34
09/13/24 05:34
PT 14.4 Sec (11.4-14.6) 09/13/24 05:34
INR 1.08 09/13/24 05:34
Estimated Creat Clear 43 ml/min 09/13/24 05:34
Lactic Acid Cancelled 09/12/24 18:37
Total Bilirubin 0.9 mg/dl (0.2-1.3) 09/13/24 05:34
AST 40 U/L (14-36) H 09/13/24 05:34
ALT 20 U/L (0-35) 09/13/24 05:34
Alkaline Phosphatase 55 U/L (38-126) 09/13/24 05:34
Most recent labs reviewed.
Micro Results:
09/12/24 01:13 Salmonella/Shigella Culture - Preliminary
Feces/Stool Culture in Progress
Campylobacter Culture - Preliminary
Culture in Progress
Shiga Toxin Test - Pending
09/12/24 08:44 Blood Culture - Preliminary
Blood/Venous No Growth in 24 hours- Final report to follow
09/13/24 05:34 Blood Culture - Pending
Blood/Venous
09/12/24 01:06 Blood Culture - Preliminary
Blood/Venous No Growth in 24 hours- Final report to follow
09/12/24 01:06 Blood Culture - Preliminary
Blood/Venous No Growth in 24 hours- Final report to follow
09/12/24 16:37 Legionella Urinary Antigen - Final
Urine Negative for Legionella pneumophila Serogroup 1 antigen.
A negative result does not rule out the possiblity of
Legionella infection due to other serogroups or species of
Legionella. Clinical correlation is recommended.
09/12/24 16:37 Streptococcus pneumoniae Antigen (M - Final
Urine Negative for Streptococcus pneumoniae antigen.
A negative result does not exclude infection with
Streptococcus pneumoniae. Clinical correlation is
recommended.
09/12/24 01:13 C. difficile GDH Antigen & Toxins - Final
Feces/Stool Negative for toxigenic C.difficile
- Final
Negative for Norovirus GI and GII.
09/12/24 01:06 Influenza Types A & B (HAMZAH) - Final
Nasal Swab Negative for Influenza A & B, NAAT
Negative results must be combined with clinical observations
and patient history.
Nucleic Acid Amplification test (NAAT)performed on the
[employer] platform.
09/12/24 CXR: Mild bibasilar opacities likely representing atelectasis in the setting of low lung volumes. Of note, the bilateral lung bases were clear on the CT abdomen/pelvis from earlier in the same day.
09/12/24 CXR: No radiographic evidence for pneumonia. 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
09/12/24 CT a/p: No CT evidence for an acute process in the abdomen or pelvis.
09/12/[address]: No acute intracranial abnormality.
[2024-09-13] MEDS: NOVOLOG FLEXPEN-LOW RESISTANCE 1 UNITS SC (13:14)
--- NOTE | 2024-09-13 13:40 | PTCARENOTE ---
Removed bilateral wrist restraints from patient. Patient is much better today. More alert and oriented. Following commands and answering questions appropriately. Patient worked with PT/OT and is currently OOB to chair. Speech therapists ordered
IDDSI6 diet. Family in room at bedside. Will continue to monitor.
[2024-09-13] MEDS: LR IV (15:49)
[2024-09-13] MEDS: STERILE WATER FOR INJECTION IV (17:25)
[2024-09-13 17:33] LABS: Glucose - Point of Care 245 mg/dl (70-99)
--- NOTE | 2024-09-13 18:00 | PTCARENOTE ---
Patient tolerating diet. Patient had 4 episodes of explosive diarrhea. Patient's daughters say she always has loose stools at home, never formed. Dr. Jack made aware.
[2024-09-13 21:42] LABS: Glucose - Point of Care 227 mg/dl (70-99)
--- NOTE | 2024-09-13 23:01 | PTCARENOTE ---
Assumed care of pt from daysorjacinda RN. Pt is aaox1 to self. NSR on monitor. 98% on RA. Pt incontinent of bowel and bladder. Pt sat in chair at start of shift. OOB x2 with RW. Pt had large liquid bowel movement. hygiene completed. Pt now resting in bed
with bed alarm on and call murphy in reach.
[2024-09-14] VITALS (13 sets, daily range): BP systolic 125–190; BP diastolic 51–88; PULSE 62; O2SAT 95
[2024-09-14 04:13] LABS: % Basophils 0.5 % (0-2); % Eosinophils 3.7 % (0-6); % Immature Granulocytes 0.4 % (0-0.5); % Lymphocytes 25.5 % (20.5-51.1); % Monocytes 7.4 % (1.7-9.3); % Neutrophils 62.5 % (42.2-75.2); Absolute Eosinophils 0.3 10^3/uL (0-0.7); Absolute Lymphocytes 2.1 10^3/uL (1.2-3.4); Absolute Monocytes 0.6 10^3/uL (0.1-0.6); Absolute Neutrophils 5.2 10^3/uL (1.4-6.5); Hematocrit 27.2 % (37.0-47.0); Hemoglobin 9.8 g/dL (12.0-16.0); Mean Corpuscular Hgb 31.2 pg (27.0-31.0); Mean Corpuscular Volume 86.6 fL (81.0-99.0); Nucleated Red Blood Cells % 0 %; Platelet Count 229 10^3/uL (130-400); Red Blood Cell Count 3.14 10^6/uL (4.20-5.40); Red Cell Dist. Width 13.9 % (11.5-14.5); White Blood Cell Count 8.3 10^3/uL (4.8-10.8)
[2024-09-14 04:41] LABS: Blood Urea Nitrogen 18 mg/dl (7-17); Carbon Dioxide 23 mmol/L (22-30); Chloride 104 mmol/L (98-107); Estimated Creatinine Clearance 43 ml/min; Glucose 184 mg/dl (70-99); Potassium 3.3 mmol/L (3.5-5.1); Sodium 135 mmol/L (135-145); eGFR > 60.00
[2024-09-14] MEDS: FLUSH (NSS) 1 FLUSH IV ×2 (05:57→05:59)
[2024-09-14] MEDS: ROCEPHIN 2000 MG IV (05:59)
[2024-09-14] MEDS: STERILE WATER FOR INJECTION 20 ML IV (06:00)
[2024-09-14] MEDS: KCL PO (06:00)
--- NOTE | 2024-09-14 06:34 | W.PN.UPDATE ---
Update Note
Progress Note Update
RN reached out that pt was only able to swallow 1/2 of one tab of potassium- totaling 10 mEq not 40 mEq. new order placed for powder.
[2024-09-14] MEDS: KCL 10 MEQ PO (06:36)
--- NOTE | 2024-09-14 06:44 | PTCARENOTE ---
Pt's morning K 3.3. Notified ALLI Rivera. Rx received for PO KCl. pt was only able to swallow half of one tablet, totaling 10 mEq. Notified SPECIALTY FINISHING UTILITY PERSON and received Rx for powder.
[2024-09-14] MEDS: KLOR-CON 20 MEQ PO ×2 (08:28→08:35)
[2024-09-14] MEDS: NSS (PRESERVATIVE FREE) 10 ML IV (08:30)
[2024-09-14] MEDS: PROTONIX IV 40 MG IV (08:30)
[2024-09-14] MEDS: HEPARIN 5000 UNITS SC (08:31)
[2024-09-14 08:54] LABS: Glucose - Point of Care 227 mg/dl (70-99)
--- NOTE | 2024-09-14 09:17 | PN.CDI ---
CDI
- -
CDI:
Physician Documentation Request
Admit Date: 09/12/24 05:38
Dear Doctor Guero,
Please review the following and provide your response in the progress notes.
Clinical Indicators:
Laboratory Tests
09/12/24 09/13/24 09/14/24
01:06 05:34 03:42
Hgb 12.7 10.1 L D 9.8 L
Hct 34.3 L 27.7 L 27.2 L
Based on the above and your clinical assessmnet, please clarify in the progress notes, the appropriate diagnosis, if significant, that supports the above abnormalities and additional evaluation, monitoring and/or treatment rendered:
Precipitous drop in hematocrit
Anemia of chronic disease - indicate if neoplastic disease, CKD or other
Abnormal lab value, clinically insignificant
Other(please specify)
Use of terms such as suspected, likely, concern for, or probable (associated with a specific diagnosis that is being evaluated, monitored, or treated as if it exists) are acceptable and can be coded in the inpatient setting, when documented at the
time of discharge.
Thank you,
Loren Giron RN BSN CCDS
CDI Specialist
Please contact via tiger text
Please use your independent medical judgment in providing your response.
[2024-09-14] MEDS: NOVOLOG FLEXPEN-LOW RESISTANCE 2 UNITS SC (09:21)
--- NOTE | 2024-09-14 09:21 | PN.CDI ---
CDI
- -
CDI:
Physician Documentation Request
Admit Date: 09/12/24 05:38
Dear Doctor Guero,
Please review the following and provide your response in the progress notes.
Clinical Indicators:
09/14/24 06:44 - Patient Care Note
#Pt's morning K 3.3.
#...Rx received for PO KCl. pt was only able to swallow half of one tablet,
#...totaling 10 mEq.
#...Notified TRIAL [employer]ER and received Rx for powder.
Laboratory Tests
09/12/24 09/13/24 09/14/24
03:00 05:34 03:42
Potassium 4.4 3.6 3.3 L
Based on the above and your clinical assessment, please clarify in the progress notes, the appropriate diagnosis, if significant, that supports the above abnormalities and additional evaluation, monitoring and/or treatment rendered:
Hypokalemia
Abnormal lab value, clinically insignificant
Other(please specify)
Use of terms such as suspected, likely, concern for, or probable (associated with a specific diagnosis that is being evaluated, monitored, or treated as if it exists) are acceptable and can be coded in the inpatient setting, when documented at the
time of discharge.
Thank you,
Loren Giron RN BSN CCDS
CDI Specialist
Please contact via tiger text
Please use your independent medical judgment in providing your response.
--- NOTE | 2024-09-14 11:08 | W.PN.ID1 ---
Date of Service
Date of Service: September 14, 2024
Today's Communication
- DC ceftriaxone (d3) and observe.
Assessment / Plan
# Fever - resolved
# Leukocytosis - resolved
# Acute on chronic change in mental status -resolving
# Diarrhea - resolved
- Source of sepsis unclear - possibly GI enteritis
- CT a/p unremarkable
-UA neg. COVID/Flu neg
- Initial cxr neg. Repeat CXR atelectasis
-Per speech - no aspiration
- Blood cultures neg to date
- C. diff neg, norovirus neg. Stool cx pending
- Urine legionella/pneumococcal Ag neg
- DC ceftriaxone (d3) and observe.
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
Diabetes mellitus
Progressive cognitive impairment
HLD
PAD
Benign pancreatic cyst
Uterine cancer status post hysterectomy/BSO (2000)
Depression
Hearing loss
Umbilical Hernia repair
L TKR
Cataract surgery
Chief Complaint
-: Fever and Leukocytosis
Subjective / Review of Systems
Alert. Denies complaints. No cough.
Vital Signs / Physical Exam
Vital Signs
Vital Signs
Temp Pulse Resp BP Pulse Ox
98.2 F 53 14 174/69 97
09/14/24 07:05 09/14/24 06:00 09/13/24 14:00 09/14/24 06:00 09/13/24 22:18
Physical Exam
Constitutional: No Acute Distress and Comfortable
Cardiovascular: Regular Rate
Pulmonary: Clear and Coarse
Gastrointestinal: Soft, Non Tender, Non Distended and Normal Bowel Sounds
Genito-Urinary: Negative CVA Tenderness
Extremities: Negative Edema
Neurological: Awake, Alert and Oriented (Can identify who she lives with and her 's name.)
Objective Data
Lab Data
Lab Results
09/14/24 03:42
09/14/24 03:42
PT 14.4 Sec (11.4-14.6) 09/13/24 05:34
INR 1.08 09/13/24 05:34
Estimated Creat Clear 43 ml/min 09/14/24 03:42
Lactic Acid Cancelled 09/12/24 18:37
Total Bilirubin 0.9 mg/dl (0.2-1.3) 09/13/24 05:34
AST 40 U/L (14-36) H 09/13/24 05:34
ALT 20 U/L (0-35) 09/13/24 05:34
Alkaline Phosphatase 55 U/L (38-126) 09/13/24 05:34
Most recent labs reviewed.
Micro Results:
09/12/24 01:13 Salmonella/Shigella Culture - Preliminary
Feces/Stool Culture in Progress
Campylobacter Culture - Preliminary
Culture in Progress
Shiga Toxin Test - Final
No E. coli Shiga Toxin 1 or 2 detected.
09/12/24 08:44 Blood Culture - Preliminary
Blood/Venous No Growth in 48 hours- Final report to follow
09/13/24 05:34 Blood Culture - Preliminary
Blood/Venous No Growth in 24 hours- Final report to follow
09/12/24 01:06 Blood Culture - Preliminary
Blood/Venous No Growth in 48 hours- Final report to follow
09/12/24 01:06 Blood Culture - Preliminary
Blood/Venous No Growth in 48 hours- Final report to follow
09/12/24 16:37 Legionella Urinary Antigen - Final
Urine Negative for Legionella pneumophila Serogroup 1 antigen.
A negative result does not rule out the possiblity of
Legionella infection due to other serogroups or species of
Legionella. Clinical correlation is recommended.
09/12/24 16:37 Streptococcus pneumoniae Antigen (M - Final
Urine Negative for Streptococcus pneumoniae antigen.
A negative result does not exclude infection with
Streptococcus pneumoniae. Clinical correlation is
recommended.
09/12/24 01:13 C. difficile GDH Antigen & Toxins - Final
Feces/Stool Negative for toxigenic C.difficile
- Final
Negative for Norovirus GI and GII.
09/12/24 01:06 Influenza Types A & B (HAMZAH) - Final
Nasal Swab Negative for Influenza A & B, NAAT
Negative results must be combined with clinical observations
and patient history.
Nucleic Acid Amplification test (NAAT)performed on the
[employer] platform.
09/12/24 CXR: Mild bibasilar opacities likely representing atelectasis in the setting of low lung volumes. Of note, the bilateral lung bases were clear on the CT abdomen/pelvis from earlier in the same day.
09/12/24 CXR: No radiographic evidence for pneumonia. 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
09/12/24 CT a/p: No CT evidence for an acute process in the abdomen or pelvis.
09/12/[address]: No acute intracranial abnormality.
--- NOTE | 2024-09-14 12:29 | W.PN.HOSP.TC ---
Today's Communication/Plan
-
Monitor off antibiotic
Imodium as needed
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
Likely discharge tomorrow to SNF
Assessment / Plan
Assessment / Plan
#Severe sepsis secondary to aspiration pneumonitis versus gastroenteritis
#Acute metabolic encephalopathy
#Lactic acidosis
-Suspect at this point that she had significant aspiration event v. gastroenteritis
-CT A/P was unremarkable, Legionella and pneumococcal antigen (-); new CXR bibasilar findings between 2 x-rays 09/12
-Evaluated by speech and swallow who recommended soft and bite-size diet, aspiration precaution
-Received 3 days of antibiotics with CTX; ID recommending to watch off antibiotics as of 09/14
-Trend CBC and temperature curve off of antibiotic
-Continue with aspiration precautions
#Diarrhea
-Suspect underlying gastroenteritis, viral >bacterial; norovirus negative
-Stool cultures were taken on arrival as was C. difficile; all were negative
-Started on as needed Imodium as of 09/13/2024, diarrhea has improved
-Continue to monitor CBC and temperature curve, continue Imodium as needed
#NIDDM
-No recent A1c; no history of microvascular disease complication
-Unclear if she is on any home medications; started on ISS with Accu-Cheks
-Blood glucose goal 140-180
#Dyslipidemia
-Not currently on any medications, no known ASCVD history
#H/O uterine cancer s/p FARRUKH
#H/O benign pancreatic cyst
#Stage I pressure ulcer
DVT prophylaxis: SQ heparin
Diet: IDDSI 6, soft and bite-size
CODE STATUS: DNR (confirmed with son 09/12)
Anticipated Discharge: Within 24 hours
Subjective/Interval History
-
Date of Service: September 14, 2024
Seen and examined at the bedside. No acute events reported overnight. AFVSS this morning
Potassium low at 3.3, 40 mEq KCl ordered for repletion. Patient did have some issues with swallowing pills, was switched to powder
Denies any new complaints today. She denies diarrhea, per nursing it has improved compared to yesterday
Objective Data
-
Labs:
Laboratory Results
09/14/24
03:42
WBC 8.3
Hgb 9.8 L
Hct 27.2 L
Plt Count 229
Sodium 135
Potassium 3.3 L
Chloride 104
Carbon Dioxide 23
BUN 18 H
Creatinine 0.8
Glucose 184 H
Calcium 8.0 L
Vital Signs:
Vital Signs
Temp Pulse Resp BP Pulse Ox
98.2 F 53 14 174/69 97
09/14/24 11:10 09/14/24 06:00 09/13/24 14:00 09/14/24 06:00 09/13/24 22:18
I&O
09/13/24 09/14/24 09/15/24
06:59 06:59 06:59
Intake Total 1058 / 1058 700 / 700
Output Total 75 / 75
Balance 983 / 983 700 / 700
Review of Systems
-
Unable to obtain full review of systems at this time due to: Dementia
Physical Exam
-
General: Well Developed, Well Nourished, No Apparent Distress and Comfortable
HEENT: Normocephalic, Atraumatic, Moist Mucous Membranes and Anicteric
Respiratory: Clear to Auscultation and Non Labored Respirations
Cardiac: Regular Rhythm and S1/S2; Negative Murmur, Rub or Gallop
GI: Soft, Nontender, Nondistended and Normal Bowel Sounds
Genito-urinary: No Costovertebral Tender
Musculoskeletal: No Clubbing, No Cyanosis and No Edema
Skin: Warm, Dry and Normal Turgor; Negative Rash
Neuro: Awake, Alert, Oriented, Nonfocal/Grossly Intact and Central Nerve's Intact; Negative Tremors
Psych: Calm
Data Reviewed
-
Labs: Labs Reviewed by me and Discussed with Nurse
--- NOTE | 2024-09-14 13:47 | CM ---
Addendum entered by Mili Perdue 09/15/24 14:09:
[facility] accepted [facility] care. See below for fax number.
Original Note:
Patient with Dx Severe sepsis secondary to aspiration pneumonitis versus gastroenteritis. Room air. PT/OT recommend skilled rehab. Mentation forgetful.
Met with patient's daughter Rowan Bonilla from [facility] (ph [phone]) and daughter Noris Barker-Bird from [facility] (ph [phone]);
they would like the patient to return home so she can be with her , and resume with her 07/12 caregiver.
Provided update that patient requires assist of 2 for her mobility and is also receiving speech therapy.
They agree to home health and chose [facility] - they agree to SN/PT/OT.
Son Marcus lives in [facility] however stays locally frequently and will probably want to transport the patient home in his van.
Daughters share that they have applied to [facility] for both their parents for possible move to assisted living in October.
Referral to [facility] (fax [phone]); they should be able to accept the referral.
Plan follow up with [facility] for acceptance.
Plan home with resumption caregivers and [facility].
[2024-09-14] MEDS: NOVOLOG FLEXPEN-LOW RESISTANCE 4 UNITS SC ×2 (13:48→18:12)
[2024-09-14 13:58] LABS: Glucose - Point of Care 311 mg/dl (70-99)
--- NOTE | 2024-09-14 14:10 | PTCARENOTE ---
Rec'd pt this AM. Daughters at bedside. Answered questions, provided education as did CM and Dr. Jack. Pt OOB to chair.
[2024-09-14 17:14] LABS: Glucose - Point of Care 320 mg/dl (70-99)
--- NOTE | 2024-09-14 17:49 | W.PN.UPDATE ---
Update Note
Progress Note Update
Patient attempted to go to the bathroom, slipped and fell, hit head with L eybrow laceration 1cm.
No LOC
no posttraumatic anisocoria, patient asymptomatic with stable vitals
-CT head, neck ordered
-bleeding stopped - hold heparin tonight
-Will ask [facility] to come by to see if suture needed
[2024-09-14] MEDS: HEPARIN SC (18:58)
--- NOTE | 2024-09-14 19:25 | FALL ---
Addendum entered by Cinthya Abbasi RN 09/14/24 19:47:
ordered to hold 2000 subq heparin tonight. Passed on to next shift.
Original Note:
Description of Fall:
Pt noted to be found on the floor of her room about 1 hour after she arrived to the unit. Family at bedside assisting her with tasks and spending time with her. They had left the unit. Pt fell shortly after that. She was noted to have a small
laceration above her left eyebrow. + head strike. Rapid response called. Rapid response team arrived shortly after , MD present. Pt taken for CT of head and cervical spine. Upon arrival back to unit. Neuro checks completed. Consistent with baseline
assessment. Q2 neuro checks ordered and added to work list. Pt's bed was at lowest position. She had non-skid socks on. Bed alarm not intact. Bed locked. Room well-lit, no clutter on floor. Upon neuro assessment, no pain noted other than to the
laceration to her left eyebrow. Pt daughter notified. MD aware.
Injuries Noted:
L eyebrow laceration
Action Taken:
Head CT, Cervical Spine CT
Name of Provider Notified: Dr. Sy Crocker
[2024-09-14 21:37] LABS: Glucose - Point of Care 179 mg/dl (70-99)
--- NOTE | 2024-09-14 22:32 | PTCARENOTE ---
Pt wearing c-spine collar after fall today. CT of head and spine were negative. Pt repeatedly taking collar off despite education. STRAWHAT BLOCKING OPERATOR notified and stated okay to keep it off. Call murphy within reach and plan of care ongoing.
[2024-09-15 03:00] VITALS: BP 176/75
[2024-09-15 06:13] LABS: % Basophils 0.5 % (0-2); % Eosinophils 3.5 % (0-6); % Immature Granulocytes 0.5 % (0-0.5); % Lymphocytes 19.3 % (20.5-51.1); % Monocytes 6.8 % (1.7-9.3); % Neutrophils 69.4 % (42.2-75.2); Absolute Eosinophils 0.3 10^3/uL (0-0.7); Absolute Lymphocytes 1.6 10^3/uL (1.2-3.4); Absolute Monocytes 0.6 10^3/uL (0.1-0.6); Absolute Neutrophils 5.7 10^3/uL (1.4-6.5); Hematocrit 27.6 % (37.0-47.0); Hemoglobin 10.1 g/dL (12.0-16.0); Mean Corp Hgb Conc. 36.6 g/dL (33.0-37.0); Mean Corpuscular Hgb 31.7 pg (27.0-31.0); Mean Corpuscular Volume 86.5 fL (81.0-99.0); Mean Platelet Volume 9.7 fL (7.4-10.4); Nucleated Red Blood Cells % 0 %; Platelet Count 246 10^3/uL (130-400); Red Blood Cell Count 3.19 10^6/uL (4.20-5.40); Red Cell Dist. Width 13.3 % (11.5-14.5); White Blood Cell Count 8.2 10^3/uL (4.8-10.8)
[2024-09-15 06:14] VITALS: BMI 23.2
[2024-09-15 08:00] VITALS: BP 173/101
[2024-09-15 08:47] LABS: Glucose - Point of Care 220 mg/dl (70-99)
[2024-09-15] MEDS: NOVOLOG FLEXPEN-LOW RESISTANCE 2 UNITS SC (09:03)
[2024-09-15] MEDS: HEPARIN 5000 UNITS SC (09:04)
[2024-09-15 09:22] LABS: Blood Urea Nitrogen 11 mg/dl (7-17); Carbon Dioxide 19 mmol/L (22-30); Chloride 104 mmol/L (98-107); Estimated Creatinine Clearance 49 ml/min; Glucose 193 mg/dl (70-99); Potassium 3.4 mmol/L (3.5-5.1); Sodium 135 mmol/L (135-145); eGFR > 60.00
--- NOTE | 2024-09-15 10:02 | CON.GS ---
Addendum entered and electronically signed by Nasir Ibrahim MD 09/15/24 10:28:
I saw and examined the patient.
The Public Health Epidemiologist's note was reviewed and I agree with the note.
Comment: Fall from standing, superficial lac to left lateral supraorbital ridge, hemostatic and well approximated. Recommend local wound care with triple abx ointment and non-adherent dressing, changed daily. Pls call with ?s
Original Note:
Consultation
-
Date/Time Consultation Performed: 09/15/24 [id number]
Reason for Consultation: laceration
Medical History
-
Chief Complaint: left brow laceration
History of Present Illness:
Ms Barker is a cognitively impaired 89 yo female presenting for fever work up who slipped and fell while attempting to use the bathroom last night. Surgery consulted to evaluate a laceration she sustained to the left brow line which is superficial
with surrounding edema to the orbit. She denies pain at the site and has removed previously applied dressings.
Past Medical History
Past Medical History: Cancer (uterine), NIDDM and Other (progressive cognitive impairment, benign pancreatic lesion)
Past Surgical History: Gynecological (FARRUKH/BSO 2000), Hernia Repair (UHR) and Orthopedic (L TKR)
Social History
Tobacco: Non-Smoker
Alcohol: None
Personal:
Living: With Family (has a 24h caregiver)
Family History
Family History: Reviewed & Not Pertinent
Allergies / Home Medications
Allergy/AdvReac Type Severity Reaction Status Date / Time
No Known Allergies Allergy Unverified 09/12/24 09:32
�Medication �Instructions �Recorded �Confirmed �Type
metformin 1,000 mg tablet 1,000 mg PO BID 09/13/24 09/13/24 History
sertraline 50 mg tablet 50 mg PO DAILY 09/13/24 09/13/24 History
Review of Systems
-
Unable to obtain full review of systems at this time due to: Dementia
A 10 point review of systems was completed, and was negative except as per HPI.
Physical Exam
Vital Signs
Temp Pulse Resp BP Pulse Ox
97.9 F 105 16 173/101 97
09/15/24 08:00 09/15/24 08:00 09/15/24 08:00 09/15/24 08:00 09/15/24 08:00
09/14/24 09/15/24 09/16/24
06:59 06:59 06:59
Actual Weight 61.28 kg
Body Mass Index (BMI) 23.2
Lab Results
09/15/24 05:59
09/15/24 05:59
WBC 8.2 10^3/uL (4.8-10.8) 09/15/24 05:59
Hgb 10.1 g/dL (12.0-16.0) L 09/15/24 05:59
Hct 27.6 % (37.0-47.0) L 09/15/24 05:59
Plt Count 246 10^3/uL (130-400) 09/15/24 05:59
Abs Immat Gran (auto) 0.0 10^3/uL (0-0.05) 09/15/24 05:59
Neutrophils % 69.4 % (42.2-75.2) 09/15/24 05:59
Physical Exam
General: No Apparent Distress
HEENT: Other (Approximately 2 cm superficial laceration to the left brow line with surrounding edema)
Neuro: Awake, Alert and Oriented (x1)
Data Reviewed
-
CT Scan: Image Personally Visualized and interpreted, Report Reviewed by me, Discussed with Physician and Discussed with Nurse
Labs: Labs Reviewed by me, Discussed with Physician and Discussed with Nurse
Old Records: Reviewed
Assessment / Plan
-
89 yo female with h/o cognitive impairment admitted for fever work up who fell yesterday evening on her way to the bathroom. Surgery consulted for evaluation of eye laceration. Head CT reviewed with no acute findings.
Approximately 2cm wound noted to the left brow line with surrounding orbital edema, would not recommend suturing or glue dressing given superficial depth of wound
Recommend local wound care with antibiotic ointment and bandage to site
Surgery to follow peripherally, please call with questions/concerns
[2024-09-15 11:00] VITALS: BP 161/72
[2024-09-15] MEDS: NSS (PRESERVATIVE FREE) IV (11:31)
[2024-09-15] MEDS: PROTONIX IV IV (11:31)
[2024-09-15] MEDS: POLYSPORIN/DOUBLE ANTIBIOTIC 1 APPLIC TOPICAL (12:22)
--- NOTE | 2024-09-15 12:57 | W.PN.HOSP.TC ---
Addendum entered and electronically signed by Marcus Jack DO 09/15/24 18:18:
K was 3.4 today. Spoke with Patient's son on the phone and advised a banana daily for 3-5 days.
Original Note:
Today's Communication/Plan
-
Discharge off of antibiotic
As needed Imodium
Topical antibiotic for forehead wound
Outpatient GI and PCP follow up
Assessment / Plan
Assessment / Plan
#Severe sepsis secondary to aspiration pneumonitis versus gastroenteritis
#Acute metabolic encephalopathy
#Lactic acidosis
-Suspect at this point that she had significant aspiration event v. gastroenteritis
-CT A/P was unremarkable, Legionella and pneumococcal antigen (-); new CXR bibasilar findings between 2 x-rays 09/12
-Evaluated by speech and swallow who recommended soft and bite-size diet, aspiration precaution
-Received 3 days of antibiotics with CTX; ID recommending to watch off antibiotics as of 09/14
-Trend CBC and temperature curve off of antibiotic
-Continue with aspiration precautions
#Chronic diarrhea
-Per patient's family, diarrhea has been present for >1-month, unclear etiology
-Does have a history of a benign pancreatic cyst, question EPI related (?)
-Stool cultures were taken on arrival as was C. difficile; all were negative
-Started on as needed Imodium as of 09/13/2024, diarrhea has improved
-Continue to monitor CBC and temperature curve, continue Imodium as needed
-Sent celiac panel, fecal elastase, fecal Calprotectin, fecal fat content
-Provided referral for outpatient GI
#NIDDM
-No recent A1c; no history of microvascular disease complication
-Unclear if she is on any home medications; started on ISS with Accu-Cheks
-Blood glucose goal 140-180
#Dyslipidemia
-Not currently on any medications, no known ASCVD history
#H/O uterine cancer s/p FARRUKH
#H/O benign pancreatic cyst
#Stage I pressure ulcer
DVT prophylaxis: SQ heparin
Diet: IDDSI 6, soft and bite-size
CODE STATUS: DNR (confirmed with son 09/12)
Anticipated Discharge: Today
Subjective/Interval History
-
Date of Service: September 15, 2024
Seen and examined at the bedside. Yesterday afternoon and mechanical fall with small laceration above left eye. No other events overnight. AFVSS this morning
Neurologic status remained intact. Labs otherwise stable. No further recurrence of fevers, mental status at baseline
ROS limited by dementia
Objective Data
-
Labs:
Laboratory Results
09/15/24
05:59
WBC 8.2
Hgb 10.1 L
Hct 27.6 L
Plt Count 246
Sodium 135
Potassium 3.4 L
Chloride 104
Carbon Dioxide 19 L
BUN 11
Creatinine 0.7
Glucose 193 H
Calcium 8.0 L
Vital Signs:
Vital Signs
Temp Pulse Resp BP Pulse Ox
98.0 F 62 20 161/72 100
09/15/24 11:00 09/15/24 11:00 09/15/24 11:00 09/15/24 11:00 09/15/24 11:00
I&O
09/14/24 09/15/24 09/16/24
06:59 06:59 06:59
Intake Total 700 / 700
Balance 700 / 700
Review of Systems
-
Unable to obtain full review of systems at this time due to: Dementia
Physical Exam
-
General: Well Developed, Well Nourished, No Apparent Distress and Comfortable
HEENT: Normocephalic, Moist Mucous Membranes, Anicteric and Other (Laceration, 1 to 2 cm above left eye with erythema, no purulence or fluctuance)
Respiratory: Clear to Auscultation and Non Labored Respirations
Cardiac: Regular Rhythm and S1/S2; Negative Murmur, Rub or Gallop
GI: Soft, Nontender, Nondistended and Normal Bowel Sounds
Musculoskeletal: No Clubbing, No Cyanosis and No Edema
Skin: Warm, Dry and Normal Turgor; Negative Rash
Neuro: Awake, Alert, Oriented and Nonfocal/Grossly Intact
Psych: Calm
Data Reviewed
-
Labs: Labs Reviewed by me, Discussed with Patient and Discussed with Family
[2024-09-15] MEDS: NOVOLOG FLEXPEN-LOW RESISTANCE SC (13:54)
[2024-09-15 14:20] LABS: Glucose - Point of Care 271 mg/dl (70-99)
[2024-09-15] MEDS: NOVOLOG FLEXPEN-LOW RESISTANCE 3 UNITS SC (14:32)
--- NOTE | 2024-09-15 14:54 | CM ---
[facility] (fax [phone]) has accepted the referral for resumption of care.
Plan home with resumption caregivers and [facility].
[2024-09-15] MEDS: IMODIUM 2 MG PO (15:00)
--- NOTE | 2024-09-15 16:01 | W.DCSUMMARY ---
Discharge Summary
Discharge Data
Date of Admission: 09/12/24
Date of Discharge: 09/15/24
Total time spent discharging patient (in min): 32
-
Pending Results: Yes
Additional Pending Results:
Celiac's panel, stool elastase, stool calprotectin, stool fat content
Hospital Course
Discharging Physician :�Marcus Jack DO
Disposition :���� Home with home care
Principal Discharge diagnosis :�
Sepsis secondary to aspiration versus gastroenteritis
Acute metabolic encephalopathy
Acute on chronic diarrhea
Aspiration pneumonitis
Hypertension
Chronic Discharge diagnosis :�
Dementia
NIDDM
PAD
Dyslipidemia
H/O uterine cancer s/p FARRUKH/BSO
H/O benign pancreatic cyst removal
Hospital Course :�
89-year-old female that presented to the hospital with fever of 102 �F, encephalopathy, leukocytosis, acute on chronic diarrhea and possible aspiration. CT head without contrast was unremarkable was started on IV ceftriaxone empirically after urine
and blood cultures were obtained. Infectious disease was consulted and helped with antibiotic guidance. Initial suspicion for sepsis secondary to aspiration event versus acute gastroenteritis. C. difficile testing, stool cultures were
unremarkable while in the hospital. Blood and urine cultures ultimately returned negative. Negative Legionella and streptococcal antigens as well. Had quick clinical improvement on IV ceftriaxone. Discussed with family who mentioned that
diarrhea has been present for over 1 month. Evaluated by speech therapy who recommended soft and bite-size diet to help limit aspiration. She was monitored off of antibiotics for 2 days and had no recurrence in leukocytosis or fever. Mental
status remained stable. Was discharged off of antibiotics with recommendation to follow-up with PCP. Due to chronic diarrhea send preliminary stool studies and celiac panel. Of note diarrhea was present in hospital despite holding metformin. Can
consideration for further testing with stool osmolar gap, colonoscopy as indicated. Provided GI referral at time of discharge
Consultants :
Infectious disease: Cinthya Copeland MD
Important imaging findings :� N/A
Procedure findings :� N/A
Follow-up :
Follow-up with family doctor in 1 to 2 weeks
Follow-up with gastroenterology in 2 weeks
Stool studies pending: Fecal calprotectin, fecal fat content, fecal elastase
Labs pending: celiac antibody panel
Discharge Plan
-
Patient Disposition: Home with Home Care
Discharge Diagnosis/Procedures: Sepsis from likely aspiration event
Chronic diarrhea
Mechanical fall
Fever
Hypertension
Condition: Fair
Diet: Other diet
Additional Diets: Soft and bite sized (IDDSI 6)
Activity: With assistance and As tolerated
Driving Restrictions: No driving
Bathing Restrictions: With assistance
Blood Work: Follow-up celiac panel with bingo checker
Others Tests: Follow-up stool elastase, stool calprotectin, stool fat content tests with bingo checker
Other Services: PT
Activity Restrictions/Additional Instructions:
Window Trimmer Apprentice: Amparo Kirkland M.Ed, RDN, LDN. Office is located at [address] [place] [address] Phone number [phone]
Instructions: Preventing falls in adults
Referrals:
Torey Carlin MD, Resident [Family Practice Resident Year2] - in two weeks
UNKNOWN - PT DOES,NOT KNOW [Family Provider] -
Rosy Bhagat, DO [Active] - in two weeks
Additional Discharge Medication Instructions: Use bacitracin zinc polymyxin B ointment applied to forehead wound twice daily
Use loperamide every 6 hours as needed for diarrhea
If diarrhea worsens stop metformin and contact family doctor
Prescriptions:
New
loperamide 2 mg Capsule
2 mg PO Q6HPRN PRN (Reason: diarrhea) 14 Days Qty: 60 0RF
bacitracin zinc-polymyxin B [Double Antibiotic (b.tracn Zn)] 500-10,000 unit/gram Ointment
1 applic topical BID 7 Days Qty: 14.2 0RF
Continued
sertraline 50 mg Tablet
50 mg PO DAILY
metformin 1,000 mg Tablet
1,000 mg PO BID
Discharge Orders:
Discharge Patient (As Directed); Ordered 09/15/24
Ordered By: Marcus Jack
Discharge Date and Time
Discharge Date/Time: 09/15/24 15:46
Print Language: LATVIAN
[2024-09-16 22:16] LABS: Endomysial IgA Antibody Titer <1:10 (<1:10)
[2024-09-17 23:12] LABS: IgA 94 mg/dl (70-400)
[2024-09-18 23:14] LABS: Fat, Fecal - Neutral Normal (Normal); Fat, Fecal - Split Normal (Normal)
== END 2024-09-15 15:46 | disposition home health service (06) | DRG 871 ==
LOC: 3 WEST ACU 05:38
PROVIDERS: ADMITTING PHYSICIAN Internal Medicine; ATTENDING PHYSICIAN Internal Medicine; CONSULT PHYSICIAN Internal Medicine Infectious Disease; EMERGENCY PHYSICIAN Emergency Medicine; OTHER PHYSICIAN Surgery
DX: A41.9 Sepsis, unspecified organism (principal); G93.41 Metabolic encephalopathy; J69.0 Pneumonitis due to inhalation of food and vomit; E87.20 Acidosis, unspecified; R71.0 Precipitous drop in hematocrit; Z11.52 Encounter for screening for COVID-19; R65.20 Severe sepsis without septic shock; E11.9 Type 2 diabetes mellitus without complications; E87.6 Hypokalemia; I10 Essential (primary) hypertension; L89.91 Pressure ulcer of unspecified site, stage 1
CPT/HCPCS: 70450; 71045; 72125; 74177; 80048; 80053; 80076; 81003; 81015; 82010; 82533; 82653; 82705; 82784; 82805; 82962; 83036; 83516; 83605; 83690; 83993; 84132; 85025; 85610; 86231; 87040; 87045; 87046; 87324; 87427; 87449; 87502; 87798; 87811; 87899; 92526; 92610; 93005; 96365; 96375; 96376; 97163; 97167; 97530; 97535; 99285; Q9967